=== PATIENT | female | born 1975 | race Caucasian/White ===

== ENCOUNTER → 2018-08-19 | Outpatient (REF) | payer OTHER ==
[~2018-08-19] MED LIST: IBU800 PO; PAN40 PO; PREN-172 PO; RANI-315 PO
[2018-08-19 13:25] LABS: PLATELET COUNT, AUTOMATED 437 K/uL (150-450)
== END ==
PROVIDERS: ATTEND Nurse Practitioner Family
DX: R07.9 Chest pain, unspecified (principal)
CPT/HCPCS: 82040; 82247; 82310; 82374; 82435; 82565; 82947; 84075; 84132; 84155; 84295; 84450; 84460; 84484; 84520; 85025

== ENCOUNTER 2019-05-09 01:43 | Emergency (ER) | payer OTHER ==
[2019-05-09 01:49] VITALS: BP 144/85
[2019-05-09] MEDS ORDERED: RANI-54 PO (01:52)
[2019-05-09] MEDS ORDERED: LORA-630 PO (01:52)
--- NOTE | 2019-05-09 01:53 | ER Report ---
History and Physical Time Seen By MD: 01:49 HPI/ROS CHIEF COMPLAINT: Draining wound, right lateral breast HISTORY OF PRESENT ILLNESS: 43-year-old female whose had a draining abscess for several weeks from her right lateral breast area. She is wearing a Band-Aid. Tonight she took off the Band-Aid and significant amount of bloody serosanguineous fluid came out. Patient's had no fever or chills. Patient states a history of hidradenitis suppurativa. Allergies: Coded Allergies: No Known Drug Allergies (Verified , 05/09/19) Home Meds Active Scripts Cephalexin 500 Mg Tab (KEFLEX 500 MG TAB) 500 Mg Tablet, 500 MG PO TID for infection, #30 TAB Prov:RICKY HOOD DO 05/09/19 Reported Medications Lorazepam (LORAZEPAM) 0.5 Mg Tablet, 0.5 MG PO PRN 05/09/19 Ranitidine Hcl (ZANTAC) 150 Mg Tablet, 150 MG PO BID, TAB 05/09/19 Discontinued Reported Medications Ibuprofen (Motrin) 800 Mg Tab, 800 MG PO Q8H, 0 Refills TAKE WITH FOOD TO AVOID UPSET STOMACH 03/30/08 Vit/Fe Fumarate/Fa (Prenatabs Fa Tablet) 1 Tab Tablet, 1 TAB PO DAILY 10/01/07 Reviewed Nurses Notes: Yes Old Medical Records Reviewed: Yes Constitutional Vital Sign - Last 24 Hours 05/09/19 01:49 Temp 98.6 Pulse 85 Resp 16 B/P (MAP) 144/85 Pulse Ox 92 O2 Delivery Room Air Physical Exam General appearance: Alert no distress. Respiratory: Chest is non tender, lungs are clear to auscultation. Breast: Examination of the right breast under the lateral fold. There is approximately 1 cm open wound with a deep pocket that has bloody. Went fluid draining from it. Cardiac: Regular rate and rhythm DIFFERENTIAL DIAGNOSIS: After history and physical exam differential diagnosis was considered for hidradenitis Medical Decision Making ED Course/Re-evaluation ED Course Patient was admitted to an examination room. H&P was done. The differential diagnoses was considered. Patient with a draining abscess on the lateral aspect of her right breast. There is no need for intervention. The wound is actively draining. She'll be placed on Keflex. She is advised to follow-up with general surgery. She continues to have problems for treatment of the wound. Decision to Disposition Date: May 09, 2019 Decision to Disposition Time: 01:57 Depart Departure Latest Vital Signs Vital Signs Date Time Temp Pulse Resp B/P (MAP) Pulse Ox O2 Delivery O2 Flow Rate FiO2 05/09/19 01:49 98.6 85 16 144/85 92 Room Air Impression: Primary Impression: Hidradenitis suppurativa Condition: Improved Disposition: HOME OR SELF-CARE Referrals: VI LIND JOHN A MD New Scripts Cephalexin 500 Mg Tab (KEFLEX 500 MG TAB) 500 Mg Tablet 500 MG PO TID for infection, #30 TAB Prov: RICKY HOOD DO 05/09/19 Patient Instructions: Hidradenitis Suppurativa (ED) Additional Instructions: Remove packing in 2 days Finished taking antibiotics until gone Follow-up with general surgery for assistance with wound care RICKY HOOD DO May 09, 2019 01:53
[2019-05-09] MEDS ORDERED: CEPHALEXIN MONO 500 MG CAP PO ONE (02:00)
[2019-05-09] MEDS ORDERED: CEPH500T7 PO (02:03)
== END 2019-05-09 02:21 | disposition home or self-care (01) ==
LOC: ER 02:01
DX: L73.2 Hidradenitis suppurativa (principal)
CPT/HCPCS: 99283